=== PATIENT | female | born 1980 | race Hispanic/Latino ===

== ENCOUNTER 2018-06-13 18:56 | Emergency (ER) | payer OTHER ==
[~2018-06-13] VITALS: Ht 157.5 cm; Wt 88.5 kg
[2018-06-13] MEDS ORDERED: METHYLPREDNISOLONE SOD SUCC 125 MG/2ML VIAL IM ONE (19:45)
[2018-06-13] MEDS ORDERED: DIPHENHYDRAMINE HCL 25 MG CAP PO NR (19:45)
[2018-06-13] MEDS ORDERED: FAMOTIDINE 20 MG TAB PO NR (19:45)
--- NOTE | 2018-06-13 20:17 | Diagnostic Imaging Report ---
EXAMINATION: PA and lateral views of the chest. COMPARISON: None CLINICAL HISTORY: Cough DISCUSSION: Lines/tubes: None. Lungs: The lungs are well inflated and clear. No pneumonia or pulmonary edema. Pleura: No pleural effusion or pneumothorax. Heart and mediastinum: The cardiomediastinal silhouette is normal. Bones and soft tissues: No acute bony abnormalities. IMPRESSION: No acute cardiopulmonary abnormalities. Signed by: Dr. Leander Siddiqui M.D. on 06/13/2018 8:14 PM
== END 2018-06-13 23:14 | disposition home or self-care (01) ==
LOC: ER 18:56
DX: T78.40XA Allergy, unspecified, initial encounter (principal)
CPT/HCPCS: 71046; 99283; J2930